=== PATIENT | male | born 1990 | race Caucasian/White ===

== ENCOUNTER 2016-06-02 08:33 | Outpatient (CLI) | payer OTHER | END 2016-06-02 08:34 | disposition home or self-care (01) | DX: M54.2 Cervicalgia (principal) ==

== ENCOUNTER 2016-10-07 16:03 | Outpatient (CLI) | payer OTHER ==
[2016-10-15 17:11] LABS: TEST RESULT REPORT (())
== END 2016-10-07 16:04 | disposition home or self-care (01) ==
LOC: LAB 16:03
PROVIDERS: ATTEND Obstetrics & Gynecology
DX: Z84.81 Family history of carrier of genetic disease (principal)
CPT/HCPCS: 81220; 81599

== ENCOUNTER 2017-02-21 08:00 | Outpatient (CLI) | payer OTHER ==
[2017-02-21 08:36] LABS: BASOPHILS # (AUTO) 0.1 10^3/uL (0.0-0.1); BASOPHILS % (AUTO) 0.6 %; EOSINOPHILS # (AUTO) 0.2 10^3/uL (0.0-0.7); EOSINOPHILS % (AUTO) 2.3 %; HCT - HEMATOCRIT 42.4 % (42.0-52.0); HGB - HEMOGLOBIN 14.5 g/dL (14.0-18.0); LYMPHOCYTES # (AUTO) 2.5 10^3/uL (1.5-3.5); LYMPHOCYTES % (AUTO) 30.8 %; MEAN CORPUSCULAR HEMOGLOBIN 29.5 pg (27.0-31.0); MEAN CORPUSCULAR HGB CONC 34.1 g/dL (32.0-36.0); MEAN CORPUSCULAR VOLUME 86.5 fL (80.0-94.0); MEAN PLATELET VOLUME 8.2 fL (7.4-11.4); MONOCYTES # (AUTO) 0.9 10^3/uL (0.0-1.0); MONOCYTES % (AUTO) 11.3 %; NEUTROPHILS # (AUTO) 4.4 10^3/uL (1.5-6.6); NUCLEATED RED BLOOD CELLS AUTO 0.1 /100WBC; RED CELL DISTRIBUTION WIDTH 13.8 % (12.0-15.0)
[2017-02-21 09:08] LABS: ALBUMIN/GLOBULIN RATIO 1.4 (1.0-2.2); BILIRUBIN,TOTAL 0.7 mg/dL (0.2-1.0); BUN - BLOOD UREA NITROGEN 13 mg/dL (6-20); CALCIUM 9.7 mg/dL (8.5-10.3); CARBON DIOXIDE - CO2 27 mmol/L (21-32); CHLORIDE 104 mmol/L (101-111); CHOL/HDL RATIO 4.2 (<5.0); CHOLESTEROL 151 mg/dL; GFR - MDRD 89 (>89); GLUCOSE 97 mg/dL (70-100); HDL CHOLESTEROL 36 mg/dL; LDL/HDL RATIO 2.9 (<3.6); POTASSIUM 4.2 mmol/L (3.5-5.0); SODIUM 140 mmol/L (135-145); TRIGLYCERIDES 61 mg/dL; VLDL CHOLESTEROL 12 mg/dL
== END 2017-02-21 08:01 | disposition home or self-care (01) ==
LOC: LAB 08:00
PROVIDERS: ATTEND Physician Assistant Medical
DX: Z00.00 Encounter for general adult medical examination without abnormal findings (principal); E66.9 Obesity, unspecified
CPT/HCPCS: 36415; 80053; 80061; 84443; 85025

== ENCOUNTER 2018-08-23 07:57 | Outpatient (CLI) | payer OTHER ==
[2018-08-23 08:52] LABS: ALBUMIN 4.8 g/dL (3.2-5.5); ALBUMIN/GLOBULIN RATIO 1.4 (1.0-2.2); ALKALINE PHOSPHATASE 48 IU/L (42-121); ALT ALANINE AMINOTRANSFERASE 42 IU/L (10-60); AST ASPARTATE AMINOTRANSFERASE 28 IU/L (10-42); BILIRUBIN,TOTAL 0.9 mg/dL (0.2-1.0); BUN - BLOOD UREA NITROGEN 19 mg/dL (6-20); CALCIUM 10.3 mg/dL (8.5-10.3); CARBON DIOXIDE - CO2 29 mmol/L (21-32); CHLORIDE 101 mmol/L (101-111); CHOL/HDL RATIO 4.5 (<5.0); CHOLESTEROL 168 mg/dL; CREATININE 0.9 mg/dL (0.6-1.2); GFR - MDRD 99 (>89); GLUCOSE 98 mg/dL (70-100); HDL CHOLESTEROL 37 mg/dL; LDL CHOLESTEROL,CALCULATED 113 mg/dL; LDL/HDL RATIO 3.1 (<3.6); SODIUM 139 mmol/L (135-145); TOTAL PROTEIN 8.3 g/dL (6.7-8.2); VLDL CHOLESTEROL 18 mg/dL
== END 2018-08-23 07:58 | disposition home or self-care (01) ==
LOC: LAB 07:57
PROVIDERS: ATTEND Family Medicine
DX: E66.9 Obesity, unspecified (principal); E78.5 Hyperlipidemia, unspecified
CPT/HCPCS: 36415; 80053; 80061; 83721

== ENCOUNTER 2018-10-15 16:23 | Outpatient (CLI) | payer OTHER ==
--- NOTE | 2018-10-16 10:05 | Ultrasound Report ---
Reason: LYMPHADENOPATHY Procedure Date: 10/15/2018 Accession Number: [id number] / [id number] Procedure: US - Pelvic Limited or F/U CPT Code: FULL RESULT: EXAM: INGUINAL ULTRASOUND EXAM DATE: 10/15/2018 04:58 PM. CLINICAL HISTORY: Lymphadenopathy. COMPARISON: None. TECHNIQUE: Real-time sonographic imaging of the inguinal canals and vascular structures, including color-flow, was performed by the pipeline construction inspector. Multiple veterans employment representative static images were saved for review. FINDINGS: Hernia: None identified. Soft Tissues: The right groin area of interest demonstrates a few lymph nodes, the largest of which measures 0.9 x 0.5 x 0.4 cm. Other: None. IMPRESSION: Lymph nodes as described. RADIA
== END 2018-10-15 16:24 | disposition home or self-care (01) ==
LOC: DI 16:23
PROVIDERS: ATTEND Family Medicine
DX: R59.1 Generalized enlarged lymph nodes (principal)
CPT/HCPCS: 76857

== ENCOUNTER 2019-04-25 10:11 | Outpatient (CLI) | payer OTHER ==
--- NOTE | 2019-04-25 11:37 | Ultrasound Report ---
Reason: LYMPHADENOPATHY Procedure Date: 04/25/2019 Accession Number: [id number] / [id number] Procedure: US - Pelvic Limited or F/U CPT Code: Final Report FULL RESULT: EXAM: INGUINAL ULTRASOUND EXAM DATE: 04/25/2019 11:02 AM. CLINICAL HISTORY: LYMPHADENOPATHY. COMPARISON: Inguinal ultrasound 10/15/2018 4:58 PM. TECHNIQUE: Real-time sonographic imaging of the inguinal canals and vascular structures, including color-flow, was performed by the apartment maintenance supervisor. Multiple veterans service representative static images were saved for review. FINDINGS: Hernia: None identified with or without Valsalva. Soft Tissues: There are 2 mildly enlarged right inguinal lymph nodes, 2 x 0.7 x 1 cm and 1.9 x 0.7 x 1 cm. Previously there is only one lymph node in the right groin, 0.9 x 0.5 x 0.4 cm. There is a left inguinal mildly enlarged lymph node, 3.7 x 0.8 x 1.8 cm. No fluid collections or adenopathy. Other: None. IMPRESSION: 1. Interval new enlarged lymph nodes in the bilateral groins, 2 on the right side and one on the left side, indeterminate nature. 2. No inguinal hernia evident. RADIA
== END 2019-04-25 10:12 | disposition home or self-care (01) ==
LOC: DI 10:11
PROVIDERS: ATTEND Physician Assistant Medical
DX: R59.0 Localized enlarged lymph nodes (principal)
CPT/HCPCS: 76857

== ENCOUNTER 2019-05-27 07:26 | Day surgery (SDC) | payer BC, OTHER ==
[2019-05-27 07:50] VITALS: BP 111/85
[2019-05-27] MEDS ORDERED: LIDOCAINE 1%-EPI 1:100000 20 ML MDV ONE (07:54)
[2019-05-27] MEDS ORDERED: BUPIVACAINE 0.5% PF 30 ML VIAL ONE (07:54)
[2019-05-27] MEDS ORDERED: SCOPOLAMINE PATCH TOP ONE (08:03)
== END 2019-05-27 07:27 | disposition home or self-care (01) ==
LOC: SDS 07:26
PROVIDERS: ATTEND Surgery
DX: R59.0 Localized enlarged lymph nodes (principal); Z53.8 Procedure and treatment not carried out for other reasons

== ENCOUNTER 2019-05-28 07:27 | Day surgery (SDC) | payer BC ==
[~2019-05-28 07:27] MED LIST: CEFAZOLIN SODIUM IN 0.9 % NACL 2 GM/100 ML BAG IV ONE; ENOXAPARIN 30 MG/0.3 ML SYRINGE SUBQ ONE
--- NOTE | 2019-05-28 07:28 | ANESTHESIA ---
Pre-Anesthesia VS, & Labs - Diagnosis bilateral inguinal lymphadenopathy - Procedure excisional biopsy left inguinal lymph node Height 6 ft - NPO >8 hours Home Medications and Allergies Ibuprofen [Motrin] 600 mg PO Q6H PRN 05/20/19 Calcium Carbonate [Tums (Calcium Carbonate 500mg)] 500 mg PO ONCE PRN 05/27/19 Allergies/Adverse Reactions: Allergies Allergy/AdvReac Type Severity Reaction Status Date / Time No Known Drug Allergies Allergy Verified 05/20/19 09:19 Anes History & Medical History - Anesthetic History Anesthesia Complications: reports: No previous complications, Post-Operative Nausea/Vomiting - Medical History Cardiovascular: reports: Murmur Pulmonary: reports: None Gastrointestinal: reports: GERD Urinary: reports: None Musculoskeletal: reports: None Endocrine/Autoimmune: reports: None Skin: reports: None Smoking Status: Never smoker - Surgical History Eyes Ears Nose Throat (EENT): Myringotomy (tubes) Exam General: Alert Dental: WNL Mouth Opening: Greater than 4 Fingerbreadths Mallampati classification: II Thyromental Distance: greater than 6 cm Respiratory: Lungs clear Cardiovascular: Regular rate, Normal S1, Normal S2 Plan Anesthesia Type: General, MAC Consent for Procedure(s) Verified and Reviewed: Yes Code Status: Attempt Resuscitation ASA classification: 1-Healthy patient Is this case an emergency?: No
[2019-05-28] MEDS ORDERED: LIDOCAINE 1%-EPI 1:100000 20 ML MDV ONE (07:36)
[2019-05-28] MEDS ORDERED: BUPIVACAINE 0.5% PF 30 ML VIAL ONE (07:36)
[2019-05-28] MEDS ORDERED: LACTATED RINGERS 1,000 ML IV ONE ×3 (07:42→10:49)
[2019-05-28] MEDS ORDERED: GLYCOPYRROLATE 1 MG/5 ML VIAL IVP ONE (09:00)
[2019-05-28] MEDS ORDERED: LIDOCAINE-MPF 2% 5 ML VIAL IM ONE (09:00)
[2019-05-28] MEDS ORDERED: fentaNYL 100 MCG/2 ML VIAL IVP ONE (09:00)
[2019-05-28] MEDS ORDERED: PROPOFOL 200 MG/20 ML VIAL IVP ONE (09:00)
[2019-05-28] MEDS ORDERED: DEXAMETHASONE 4 MG/ML VIAL IVP ONE (09:00)
[2019-05-28] MEDS ORDERED: ONDANSETRON 4 MG/2 ML VIAL IVP ONE (09:00)
[2019-05-28] MEDS ORDERED: KETAMINE 500 MG/10 ML VIAL IVP ONE (09:00)
[2019-05-28] MEDS ORDERED: MIDAZOLAM 2 MG/2 ML VIAL IVP ONE (09:00)
[2019-05-28] MEDS ORDERED: LIDOCAINE 1%-EPI 1:100000 30 ML MDV SUBQ ONE (09:49)
[2019-05-28] MEDS ORDERED: BUPIVACAINE 0.5% PF 30 ML VIAL INFIL ONE (09:50)
--- NOTE | 2019-05-28 10:14 | OPERATIVE REPORT ---
Operative Report - General Procedure Date: 05/28/19 Planned Procedure: Left Inguinal Lymph Node Excision Pre-Op Diagnosis: Inguinal Adenopathy Procedure Performed: Left Inguinal Lymph Node Excision Post Op Diagnosis: Same - Procedure Note Primary Surgeon: Rambo Anesthesia Provider: KELLY Armenta Anesthesia Technique: General LMA, Local Pathology: Lymph node to pathology divided into three portions. One portion sent fresh, one in formalin, and one in RPMI Estimated Blood Loss (mL): 10 Indications: Bilateral inguinal adenopathy Findings: Enlarged but otherwise normal appearing left inguinal lymph node. Complications: None apparent - Other Other Information/Narrative: After obtaining informed consent, the patient was taken to the operating room and placed in the supine position on the operating table. Following successful induction of general anesthesia, appropriate padding of all bony prominences, and placement of appropriate monitors, the left groin was prepped and draped in the standard surgical fashion. A timeout was held per scope protocol. All elements of the surgical safety checklist were followed before, during, and after the procedure. Following infiltration with local anesthetic to create a field block, an incision was created directly over the palpably enlarged left inguinal node. This was carried through the skin and subcutaneous tissue and into the inguinal lymph node packet. The lymph node was identified and carefully elevated. All a ferret and each parent lymphatics and vasculature were addressed with hemoclips prior to division. The node was completely liberated and placed on the back table. It was divided into 3 segments. One segment was placed in saline solution, 1 in formalin, and 1 in RPMI media. These were all submitted to pathology. The wound was then checked for hemostasis and also checked to be sure no lymphatic fluid was pooling within the wound itself. It was completely dry. It was then closed in 2 layers with Vicryl and Monocryl suture and Dermabond was applied to the skin. All sponge, needle, and instrument counts were correct at the conclusion of the case. The patient was allowed awaken from anesthesia without difficulty and taken to the postanesthesia care unit in good condition.
[2019-05-28] MEDS ORDERED: IBUPROFEN 600 MG TABLET PO PRN (10:23)
[2019-05-28] MEDS ORDERED: ONDANSETRON 4 MG/2 ML VIAL IVP PRN (10:23)
[2019-05-28] MEDS ORDERED: ACETAMINOPHEN 325 MG TABLET PO PRN (10:23)
[2019-05-28] MEDS ORDERED: oxyCODONE 5 MG TABLET PO PRN (10:23)
[2019-05-28] MEDS ORDERED: KETOROLAC 15 MG/ML VIAL ONE (10:24)
[2019-05-28 11:52] VITALS: BP 106/67
== END 2019-05-28 07:28 | disposition home or self-care (01) ==
LOC: SDS 07:27
PROVIDERS: ATTEND Surgery
PROC: 07BJ0ZX Excision of Left Inguinal Lymphatic, Open Approach, Diagnostic (ICD-10-PCS; principal; 2019-05-28 08:30)
DX: R59.1 Generalized enlarged lymph nodes (principal); E66.9 Obesity, unspecified; Z68.31 Body mass index [BMI] 31.0-31.9, adult

== ENCOUNTER 2019-11-13 09:36 | Outpatient (CLI) | payer BC ==
[2019-11-13 10:09] LABS: BASOPHILS % (AUTO) 0.4 %; EOSINOPHILS # (AUTO) 0.2 10^3/uL (0.0-0.7); HGB - HEMOGLOBIN 14.5 g/dL (14.0-18.0); LYMPHOCYTES # (AUTO) 2.4 10^3/uL (1.5-3.5); LYMPHOCYTES % (AUTO) 34.3 %; MEAN CORPUSCULAR HEMOGLOBIN 30.1 pg (27.0-31.0); MEAN CORPUSCULAR HGB CONC 33.9 g/dL (32.0-36.0); MEAN PLATELET VOLUME 10.2 fL (7.4-11.4); MONOCYTES # (AUTO) 0.6 10^3/uL (0.0-1.0); MONOCYTES % (AUTO) 8.4 %; NEUTROPHILS # (AUTO) 3.7 10^3/uL (1.5-6.6); NEUTROPHILS % (AUTO) 53.6 %; PLT - PLATELET COUNT 289 10^3/uL (130-450); RED BLOOD COUNT 4.81 10^6/uL (4.70-6.10); RED CELL DISTRIBUTION WIDTH 13.1 % (12.0-15.0); WHITE BLOOD COUNT 6.9 x10^3/uL (4.8-10.8)
[2019-11-13 10:29] LABS: ALBUMIN 4.8 g/dL (3.2-5.5); ALBUMIN/GLOBULIN RATIO 1.7 (1.0-2.2); ALKALINE PHOSPHATASE 44 IU/L (42-121); ALT ALANINE AMINOTRANSFERASE 21 IU/L (10-60); AST ASPARTATE AMINOTRANSFERASE 19 IU/L (10-42); BILIRUBIN,TOTAL 1.3 mg/dL (0.2-1.0); BUN - BLOOD UREA NITROGEN 17 mg/dL (6-20); CALCIUM 9.3 mg/dL (8.5-10.3); CARBON DIOXIDE - CO2 26 mmol/L (21-32); CHLORIDE 101 mmol/L (101-111); CHOL/HDL RATIO 4.3 (<5.0); CHOLESTEROL 166 mg/dL; GLUCOSE 91 mg/dL (70-100); HDL CHOLESTEROL 39 mg/dL; LDL CHOLESTEROL,CALCULATED 113 mg/dL; LDL/HDL RATIO 2.9 (<3.6); SODIUM 137 mmol/L (135-145); TOTAL PROTEIN 7.6 g/dL (6.7-8.2); VLDL CHOLESTEROL 14 mg/dL
== END 2019-11-13 09:37 | disposition home or self-care (01) ==
LOC: LAB 09:36
PROVIDERS: ATTEND Physician Assistant Medical
DX: Z00.00 Encounter for general adult medical examination without abnormal findings (principal)
CPT/HCPCS: 36415; 80053; 80061; 83721; 84443; 85025